=== PATIENT | female | born 1940 | race African-American/Black ===

== ENCOUNTER → 2017-07-12 | Outpatient (CLI) | payer OTHER, MEDICAID ==
[2015-01-10 07:44] VITALS: BP 132/73
--- NOTE | 2017-07-12 14:35 | MG ---
Examination: Unilateral right diagnostic mammogram. Clinical history: Personal history of left breast carcinoma with left mastectomy in 2009. Technique: Multiple digital images of the right breast were obtained. Computer aided detection analys is was performed in the used in the interpretation. Comparison: 07/06/2015, 06/19/2014, 04/30/2013. Findings: The right breast is heterogeneously dense, reducing the sensitivity of mammography. Benign-appearing calcifications and vascular calcifications are noted in the right breast. A 6-7 mm circumscribed, ova l benign-appearing mass is noted in the upper outer aspect of the right breast. This lesion has minim ally enlarged since the prior examinations, but has no additional worrisome features and probably rep resents a small intramammary lymph node. No suspicious mass, area of architectural distortion or suspicious cluster of microcalcifications is noted. Impression: 1. No mammographic evidence of malignancy. BI-RADS category 2-benign findings. Recommend routine annual screening mammogram. Diagnostic CAD was utilized and reviewed. * 0 (ZERO) - ASSESSMENT INCOMPLETE; ADDITIONAL IMAGING IS NEEDED. * 0C - ASSESSMENT INCOMPLETE, NEEDS ADDITIONAL IMAGING EVALUATION AND/OR PRIOR MAMMOGRAMS FOR COMPARI SON. * 1/1 (ONE) - NEGATIVE. * 2/II (TWO) - BENIGN FINDINGS. * 3/III (THREE) - PROBABLY BENIGN FINDING; SHORT INTERVAL FOLLOW-UP SUGGESTED. * 4/IV (FOUR) - SUSPICIOUS ABNORMALITY; BIOPSY SHOULD BE CONSIDERED. * 5/V - HIGHLY SUSPICIOUS OF MALIGNANCY; BIOPSY SHOULD BE PERFORMED. * 6/ - KNOWN BIOPSY PROVEN MALIGNANCY-APPROPRIATE ACTION SHOULD BE TAKEN. A NEGATIVE X-RAY REPORT SHOULD NOT DELAY BIOPSY IF A DOMINANT OR CLINICALLY SUSPICIOUS MASS IS PRESENT; 4 TO 8 PERCENT OF CANCERS ARE NOT IDENTIFIED BY X-RAY. A NEGATIVE REPORT MAY REINFORCE THE CLINICAL IMPRESSION. ADENOSIS AND DENSE BREASTS MAY OBSCURE AN UNDERLYING NEOPLASM. Reported By:
== END ==
LOC: RAD 08:40
PROVIDERS: ATTEND Internal Medicine Hematology & Oncology
DX: C50.112 Malignant neoplasm of central portion of left female breast (principal)
CPT/HCPCS: 77065

== ENCOUNTER → 2017-07-13 | Outpatient (CLI) | payer OTHER, MEDICAID ==
[2015-01-10 07:44] VITALS: BP 132/73
[2017-07-13 14:47] LABS: BASOPHILS % (AUTO) 0.6 % (0.2-1.0); EOSINOPHILS # (AUTO) 0.1 x10^3/uL (0.0-0.2); HEMATOCRIT 37.1 % (36.0-47.0); HEMOGLOBIN 12.6 g/dL (12.0-16.0); LYMPHOCYTES # (AUTO) 2.2 X10^3/uL (1.3-2.9); LYMPHOCYTES % (AUTO) 38.4 % (21.0-51.0); MEAN CORPUSCULAR HEMOGLOBIN 28.5 pg (27.0-34.0); MEAN PLATELET VOLUME 6.5 fL (7.4-11.0); MONOCYTES # (AUTO) 0.5 x10^3/uL (0.3-0.8); MONOCYTES % (AUTO) 8.6 % (0.0-13.0); NEUTROPHILS # (AUTO) 2.9 x10^3/uL (2.2-4.8); NEUTROPHILS % (AUTO) 50.4 % (42.0-75.0); PLATELET COUNT 319 X10^3/uL (150.0-450.0); RED BLOOD COUNT 4.42 X10^6/uL (3.5-5.4); RED CELL DISTRIBUTION WIDTH 14.6 % (11.6-16.5); WHITE BLOOD COUNT 5.7 X10^3/uL (3.6-10.0)
[2017-07-13 14:52] LABS: BLOOD UREA NITROGEN 12 mg/dL (7-18); CALCIUM 9.1 mg/dL (8.5-10.1); CREATININE 1.02 mg/dL (0.55-1.02); eGFR BLACK RACES > 60 (>60); eGFR NON BLACK RACES 56 (>60)
[2017-07-13 14:55] LABS: ALANINE AMINOTRANSFERASE 25 Units/L (12-78); ALBUMIN 3.5 g/dL (3.4-5.0); ALKALINE PHOSPHATASE 105 Units/L (46-116); ASPARTATE AMINO TRANSFERASE 16 Units/L (15-37); TOTAL PROTEIN 7.7 g/dL (6.4-8.2)
[2017-07-13 15:01] LABS: CHLORIDE 106 mmol/L (98-107); COR NA(FOR HYPERGLY) 141 mmol/L (136-145); SODIUM 140 mmol/L (136-145)
== END ==
LOC: LAB 14:24
PROVIDERS: ATTEND Internal Medicine Hematology & Oncology
DX: C50.112 Malignant neoplasm of central portion of left female breast (principal); E55.9 Vitamin D deficiency, unspecified
CPT/HCPCS: 36415; 80053; 82306; 85025

== ENCOUNTER 2019-11-21 12:03 | Observation (INO) ==
[2019-11-21] MEDS ORDERED: TUSSIONEX PENNKINETIC SUSP PO PRN (14:42)
[2019-11-21 15:20] LABS: BASOPHILS % (AUTO) 0.4 % (0.2-1.0); EOSINOPHILS % (AUTO) 0.1 % (0.9-2.9); HEMATOCRIT 39.2 % (36.0-47.0); HEMOGLOBIN 13.4 g/dL (12.0-16.0); LYMPHOCYTES # (AUTO) 0.6 X10^3/uL (1.3-2.9); LYMPHOCYTES % (AUTO) 8.2 % (21.0-51.0); MEAN CORPUSCULAR HEMOGLOBIN 29.1 pg (27.0-34.0); MEAN CORPUSCULAR HGB CONC 34.1 g/dL (33.0-35.0); MEAN CORPUSCULAR VOLUME 85.2 fL (80.0-100.0); MEAN PLATELET VOLUME 6.3 fL (7.4-11.0); MONOCYTES # (AUTO) 0.9 x10^3/uL (0.3-0.8); MONOCYTES % (AUTO) 12.6 % (0.0-13.0); NEUTROPHILS # (AUTO) 5.6 x10^3/uL (2.2-4.8); NEUTROPHILS % (AUTO) 78.7 % (42.0-75.0); PLATELET COUNT 276 X10^3/uL (150.0-450.0); RED CELL DISTRIBUTION WIDTH 14.2 % (11.6-16.5); WHITE BLOOD COUNT 7.1 X10^3/uL (3.6-10.0)
[2019-11-21 15:35] LABS: ALANINE AMINOTRANSFERASE 53 Units/L (12-78); ALBUMIN 3.8 g/dL (3.4-5.0); ALKALINE PHOSPHATASE 120 Units/L (46-116); ASPARTATE AMINO TRANSFERASE 44 Units/L (15-37); BLOOD UREA NITROGEN 14 mg/dL (7-18); CALCIUM 9.4 mg/dL (8.5-10.1); CARBON DIOXIDE 26.3 mmol/L (21-32); CHLORIDE 102 mmol/L (98-107); COR NA(FOR HYPERGLY) 138 mmol/L (136-145); CREATININE 1.06 mg/dL (0.55-1.02); SODIUM 138 mmol/L (136-145); TOTAL PROTEIN 8.2 g/dL (6.4-8.2); eGFR NON BLACK RACES 53 (>60)
[2019-11-21] MEDS ORDERED: NS 1/2 1000 ML IV 1,000 ML IV ONE (15:43)
[2019-11-21] MEDS: LEVAQUIN PREMIX IV 750 MG 750 MG/150 ML BAG IV SCH (15:45)
[2019-11-21] MEDS: NS 1/2 1000 ML IV 1,000 ML IV SCH (15:45)
--- NOTE | 2019-11-21 15:50 | RAD ---
HISTORYPNEUMONIASTUDYCHEST, 1 VIEWCOMPARISONNoneFINDINGSThe heart is normal. The pulmonary vessels are normal. The lungs are mildly hyperinflated and emphysematous. No consolidation or effusion is seen. There are surgical clips along the left axilla.IMPRESSIONMild chronic obstructive lung changes with no acute cardiopulmonary abnormality.Electronically signed by: CAMELIA GIL (Nov 21, 2019 15:47:43)
[2019-11-21] MEDS: ROBITUSSIN DM PO SCH ×2 (17:14→20:44)
[2019-11-21] MEDS: DUONEB 0.5 MG/3 MG (3 mL) NEB SCH ×2 (18:28→20:15)
[2019-11-21] MEDS: TYLENOL 325 MG TAB PO PRN (19:09)
[2019-11-21] MEDS: TAMIFLU PO SCH (20:44)
[2019-11-22] MEDS: TYLENOL 325 MG TAB PO PRN ×2 (04:16→23:37)
[2019-11-22 05:25] LABS: BASOPHILS % (AUTO) 0.3 % (0.2-1.0); HEMATOCRIT 35.7 % (36.0-47.0); HEMOGLOBIN 12.2 g/dL (12.0-16.0); LYMPHOCYTES # (AUTO) 0.5 X10^3/uL (1.3-2.9); LYMPHOCYTES % (AUTO) 8.1 % (21.0-51.0); MEAN CORPUSCULAR HEMOGLOBIN 29.3 pg (27.0-34.0); MEAN CORPUSCULAR HGB CONC 34.2 g/dL (33.0-35.0); MEAN CORPUSCULAR VOLUME 85.7 fL (80.0-100.0); MEAN PLATELET VOLUME 6.5 fL (7.4-11.0); MONOCYTES # (AUTO) 0.6 x10^3/uL (0.3-0.8); MONOCYTES % (AUTO) 9.7 % (0.0-13.0); NEUTROPHILS # (AUTO) 4.9 x10^3/uL (2.2-4.8); NEUTROPHILS % (AUTO) 81.9 % (42.0-75.0); PLATELET COUNT 256 X10^3/uL (150.0-450.0); RED BLOOD COUNT 4.16 X10^6/uL (3.5-5.4); RED CELL DISTRIBUTION WIDTH 14.5 % (11.6-16.5); WHITE BLOOD COUNT 5.9 X10^3/uL (3.6-10.0)
[2019-11-22 05:39] LABS: ALANINE AMINOTRANSFERASE 47 Units/L (12-78); ALBUMIN 3.2 g/dL (3.4-5.0); ALKALINE PHOSPHATASE 102 Units/L (46-116); ASPARTATE AMINO TRANSFERASE 33 Units/L (15-37); BLOOD UREA NITROGEN 11 mg/dL (7-18); CALCIUM 8.4 mg/dL (8.5-10.1); CARBON DIOXIDE 24.8 mmol/L (21-32); CHLORIDE 99 mmol/L (98-107); SODIUM 134 mmol/L (136-145); TOTAL PROTEIN 7.3 g/dL (6.4-8.2); eGFR NON BLACK RACES > 60 (>60)
[2019-11-22] MEDS: LEVAQUIN PREMIX IV 750 MG 750 MG/150 ML BAG IV SCH (09:13)
[2019-11-22] MEDS: ZOCOR TAB 20 MG PO SCH ×2 (09:14→09:19)
[2019-11-22] MEDS: NORVASC TAB 10 MG PO SCH (09:15)
[2019-11-22] MEDS: TOPROL XL PO SCH (09:15)
[2019-11-22] MEDS: TAMIFLU PO SCH ×2 (09:16→20:52)
[2019-11-22] MEDS: ROBITUSSIN DM PO SCH ×4 (09:16→20:52)
[2019-11-22] MEDS ORDERED: NS 1/2 1000 ML IV 1,000 ML IV ONE (09:23)
[2019-11-22] MEDS: DUONEB 0.5 MG/3 MG (3 mL) NEB SCH ×4 (09:26→20:05)
[2019-11-22] MEDS ORDERED: KLOR-CON PO PRN (15:37)
[2019-11-22] MEDS ORDERED: POTASSIUM CHL 40 MEQ/NS 0.45% 500 ML IV PRN (15:37)
[2019-11-22] MEDS ORDERED: POTASSIUM CHL 60 MEQ/NS 0.45% 500 ML IV PRN (15:37)
[2019-11-22] MEDS ORDERED: POTASSIUM CHLORIDE LIQ 20 MEQ UDC PO PRN (15:37)
[2019-11-22] MEDS ORDERED: K-RIDER 10 MEQ/NS 100 ML 10 MEQ/100 ML BAG IV PRN (15:37)
[2019-11-22] MEDS ORDERED: K-DUR TAB 20 MEQ PO PRN (15:37)
[2019-11-22] MEDS ORDERED: MICRO K EXTEN CAP 10 MEQ PO PRN (15:37)
[2019-11-22] MEDS: NS 1/2 1000 ML IV 1,000 ML IV SCH ×2 (16:00→18:49)
[2019-11-22] MEDS ORDERED: K-LYTE EFFERVESCENT ONE (17:17)
[2019-11-22] MEDS ORDERED: MAGNESIUM SULFATE 1 GRAM/100 mL PREMIX 2 G/200 ML BAG IV ONE (17:17)
[2019-11-22] MEDS: MAGNESIUM SULFATE 1 GRAM/100 mL PREMIX 1 GM/100 ML BAG IV PRN ×2 (17:21→18:50)
[2019-11-22] MEDS: ZOCOR TAB 10 MG PO SCH (20:52)
[2019-11-23 05:15] LABS: ALANINE AMINOTRANSFERASE 39 Units/L (12-78); ALBUMIN 2.8 g/dL (3.4-5.0); ALKALINE PHOSPHATASE 88 Units/L (46-116); ASPARTATE AMINO TRANSFERASE 29 Units/L (15-37); BASOPHILS % (AUTO) 0.4 % (0.2-1.0); BLOOD UREA NITROGEN 10 mg/dL (7-18); CALCIUM 8.1 mg/dL (8.5-10.1); CARBON DIOXIDE 25.9 mmol/L (21-32); CHLORIDE 101 mmol/L (98-107); COR CA(FOR HYPOALB) 9.1 mg/dL (8.5-10.1); CREATININE 0.94 mg/dL (0.55-1.02); HEMATOCRIT 35.7 % (36.0-47.0); LYMPHOCYTES # (AUTO) 1.1 X10^3/uL (1.3-2.9); LYMPHOCYTES % (AUTO) 30.5 % (21.0-51.0); MAGNESIUM 2.3 mg/dL (1.7-2.9); MEAN CORPUSCULAR HEMOGLOBIN 28.7 pg (27.0-34.0); MEAN CORPUSCULAR HGB CONC 33.6 g/dL (33.0-35.0); MEAN CORPUSCULAR VOLUME 85.7 fL (80.0-100.0); MEAN PLATELET VOLUME 6.7 fL (7.4-11.0); MONOCYTES # (AUTO) 0.7 x10^3/uL (0.3-0.8); MONOCYTES % (AUTO) 20.5 % (0.0-13.0); NEUTROPHILS # (AUTO) 1.7 x10^3/uL (2.2-4.8); NEUTROPHILS % (AUTO) 48.6 % (42.0-75.0); PLATELET COUNT 219 X10^3/uL (150.0-450.0); RED BLOOD COUNT 4.17 X10^6/uL (3.5-5.4); RED CELL DISTRIBUTION WIDTH 14.4 % (11.6-16.5); SODIUM 135 mmol/L (136-145); TOTAL PROTEIN 6.6 g/dL (6.4-8.2); WHITE BLOOD COUNT 3.5 X10^3/uL (3.6-10.0); eGFR NON BLACK RACES > 60 (>60)
[2019-11-23 05:59] LABS: BAND NEUTROPHILS % 10 % (0-10); BASOPHILS % (MANUAL) 2 % (0-1)
[2019-11-23 06:00] LABS: HYPOCHROMASIA 1+; MICROCYTOSIS 1+; PLATELET MORPHOLOGY COMMENT NORMAL (NORMAL)
--- NOTE | 2019-11-23 06:07 | RAD ---
HISTORYPneumoniaSTUDYCHEST, 1 [id number]/24/2020FINDINGSThe heart is within normal limits in size. The lay are normal. The lungs are free of acute infiltrates. No pleural effusions are identified. There is minimal subsegmental atelectasis in the right lung base. Bony thorax is unremarkable.IMPRESSIONNo infiltratesMinimal subsegmental atelectasis right lung baseElectronically signed by: LORENA HOWE (Nov 23, 2019 06:06:39)
[2019-11-23] MEDS: TOPROL XL PO SCH (08:15)
[2019-11-23] MEDS: LEVAQUIN PREMIX IV 750 MG 750 MG/150 ML BAG IV SCH (08:15)
[2019-11-23] MEDS: TAMIFLU PO SCH ×2 (08:15→21:10)
[2019-11-23] MEDS: NORVASC TAB 10 MG PO SCH (08:15)
[2019-11-23] MEDS: ROBITUSSIN DM PO SCH ×4 (08:16→21:10)
[2019-11-23] MEDS: DUONEB 0.5 MG/3 MG (3 mL) NEB SCH ×4 (09:30→21:23)
[2019-11-23] MEDS ORDERED: NS 1/2 1000 ML IV 1,000 ML IV ONE (09:47)
[2019-11-23 11:59] LABS: BILIRUBIN,URINE NEGATIVE (NEGATIVE); BLOOD/HEMOGLOBIN,URINE 1+ (NEGATIVE); GLUCOSE, URINE NEGATIVE (NEGATIVE); KETONES,URINE NEGATIVE (NEGATIVE); LEUKOCYTE ESTERASE ,URINE 3+ (NEGATIVE); NITRITES,URINE NEGATIVE (NEGATIVE); PROTEIN,URINE 1+ (NEGATIVE); UROBILINOGEN,URINE NORMAL (NORMAL)
[2019-11-23 12:13] LABS: APPEARANCE,URINE CLEAR (CLEAR); BACTERIA,URINE NEGATIVE /HPF (NEGATIVE); COLOR,URINE PALE YELLOW (YELLOW); RBC,URINE 0-2 /HPF (0-3); SQUAMOUS EPITHELIAL CELL,UR FEW /HPF (NEGATIVE)
[2019-11-23] MEDS: NS 1/2 1000 ML IV 1,000 ML IV SCH ×3 (12:53→23:30)
--- NOTE | 2019-11-23 20:42 | DR.UPDATE ---
H&P Update History and Physical Update: History and Physical reviewed and patient examined. Changes noted: Yes with the following: PRESENTED TO THE OFFICE YESTERDAY WITH COMPLAINTS OF COUGH, CONGESTION, SHORTNESS OF BREATH, FEVER, FATIGUE, AND WEAKNESS. SYMPOTMS STARTED APPROXIMATELY 3-4 DAYS PRIOR. SHE WAS ADMITTED FOR FURTHER EVALUATION AND TREATMENT OF INFLUENZA, BRONCHOPNEUMONIA, FEVER, CHILLS, AND SOB. ON ADMISSION, VITALS WERE 100.2-85-18-97%-132/73. LABS WERE OBTAINED. ABNORMAL LAB VALUES INCLUDE THE FOLLOWING: CREATININE 1.06, GLUCOSE 115, POTASSIUM 3.6, MAGNESIUM 1.6, AST 44, ALK PHOS 120. BLOOD AND SPUTUM CULTURES WERE OBTAINED. A CHEST XRAY WAS OBTAINED AND REVEALED: MILD CHRONIC OBSTRUCTIVE LUNG CHANGES WITH NO ACUTE CARDIOPULMONARY ABNORMALITY. SHE WAS STARTED ON 1/2NS AT 75 ML/HR, LEVAQUIN 750MG IV DAILY, TAMIFLU 75MG PO BID, RESPIRATORY TX, TUSSIONEX, ROBITUSSIN, AND SUPPLEMENTAL OXYGEN. WE WILL CONTINUE WITH CURRENT PLAN OF CARE TODAY AND START THE POTASSIUM AND MAGNESIUM PROTOCOLS. OTHERWISE, WE WILL FOLLOW UP WITH AM LABS AND CONTINUE TO [facility]. Prescription drug monitoring program results: PDMP was not reviewed H&P Reviewed: Yes Patient was examined?: Yes
[2019-11-23] MEDS ORDERED: RESTORIL CAP 15 MG PO PRN (20:57)
[2019-11-23] MEDS: ZOCOR TAB 10 MG PO SCH (21:10)
--- NOTE | 2019-11-23 22:03 | PCM.PROG ---
Progress Note - Progress Note for Day of Date of Exam: 11/23/19 - Subjective Subjective: IS BEING TREATED FOR TREATMENT OF INFLUENZA, BRONCHOPNEUMONIA, FEVER, AND WEAKNESS. TODAY, SHE IS ALERT AND ORIENTED, LYING IN BED ON MORNING ROUNDS. SHE CONTINUES WITH COMPLAINTS OF A PRODUCTIVE COUGH, SHORTNESS OF BREATH, AND BODY ACHES. ON EXAMINATION, HEART IS REGULAR IN RATE AND RHYTHM. BILATERAL LUNGS ARE NOTED WITH SCATTERED WHEEZING THROUGHOUT. ABDOMEN IS ROUND, SOFT, AND NON-TENDER WITH NORMAL BOWEL SOUNDS NOTED IN ALL QUADRANTS. HER VITALS THIS MORNING ARE: 98.9-65-24-96%-130/60. LABS WERE OBTAINED. ABNORMAL LAB VALUES INCLUDE THE FOLLOWING: WBC 3.5, HCT 35.7, SODIUM 135, GLUCOSE 101, CALCIUM 8.1, ALBUMIN 2.8. A URINALYSIS WAS OBTAINED AND REVEALED: WBC 5-10, RBC 0-2, LEUKOCYTES 3+, BACTERIA NEGATIVE. BLOOD, SPUTUM, AND URINE CULTURES ARE PENDING. A CHEST XRAY WAS OBTAINED TODAY AND REVEALED: No infiltrates. Minimal subsegmental atelectasis right lung base. SHE IS CURRENTLY RECEIVING 1/2NS AT 75ML/HR, LEVAQUIN 750MG IV DAILY, RESPIRATORY TX, SUPPLEMENTAL OXYGEN, AND THE POTASSIUM AND MAGNESIUM PROTOCOLS. HOME MEDICATIONS WERE RESUMED. WE WILL CONTINUE WITH CURRENT PLAN OF CARE TODAY. OTHERWISE, WE WILL FOLLOW UP WITH AM LABS AND CONTINUE TO MONITOR. - Past Medical Family Social History Past Med/Fam/Surg Hx: No changes since H&P Allergies: Allergies No Known Drug Allergies Allergy (Verified 11/22/19 19:10) - Review of Systems ROS: No change since H&P - Vital Signs and I&O's Vital Signs: Temperature 99.6 F Pulse Rate [Left Brachial] 73 Pulse Rate 64 Respiratory Rate 24 Blood Pressure [Left leg] 147/63 Blood Pressure 145/76 O2 Sat by Pulse Oximetry 96 Intake and Output: Intake & Output 11/21/19 11/22/19 11/23/19 11/24/19 11:59 11:59 11:59 11:59 Intake Total 2054 2930 / 2930 1420 / 1420 Balance 2054 2930 / 2930 1420 / 1420 - Physical Exam Oriented: Normal Eyes: Normal Ear: Normal Nose: Normal Throat: Normal Respiratory: Generalized, Wheezes Cardiovascular: Normal : Normal Auscultation: Bowel Sounds: Normal Palpation: Normal Tenderness: Normal Skin: Normal Musculoskeletal: Normal Psychiatric: Normal Mood Description: Calm Affect: Normal Speech Pattern: Clear, Appropriate - Laboratory and Diagnostics Result Diagrams: 11/23/19 04:49 11/23/19 04:49 Labs: 11/21/19 15:28 Blood Blood Culture - Preliminary 11/21/19 15:00 Blood Blood Culture - Preliminary 11/21/19 16:15 Sputum - Expectorated Sputum Sputum Culture - Final 11/21/19 16:15 Sputum - Expectorated Sputum - Final Laboratory WBC 3.5 X10^3/uL (3.6-10.0) L 11/23/19 04:49 RBC 4.17 X10^6/uL (3.5-5.4) 11/23/19 04:49 Hgb 12.0 g/dL (12.0-16.0) 11/23/19 04:49 Hct 35.7 % (36.0-47.0) L 11/23/19 04:49 MCV 85.7 fL (80.0-100.0) 11/23/19 04:49 MCH 28.7 pg (27.0-34.0) 11/23/19 04:49 MCHC 33.6 g/dL (33.0-35.0) 11/23/19 04:49 RDW 14.4 % (11.6-16.5) 11/23/19 04:49 Plt Count 219 X10^3/uL (150.0-450.0) 11/23/19 04:49 Plt Count Comment Adequate (ADEQUATE) 11/23/19 04:49 MPV 6.7 fL (7.4-11.0) L 11/23/19 04:49 Neut % (Auto) 48.6 % (42.0-75.0) 11/23/19 04:49 Lymph % (Auto) 30.5 % (21.0-51.0) 11/23/19 04:49 [place] % (Auto) 20.5 % (0.0-13.0) H 11/23/19 04:49 Eos % (Auto) 0.0 % (0.9-2.9) L 11/23/19 04:49 Baso % (Auto) 0.4 % (0.2-1.0) 11/23/19 04:49 Neut # (Auto) 1.7 x10^3/uL (2.2-4.8) L 11/23/19 04:49 Lymph # (Auto) 1.1 X10^3/uL (1.3-2.9) L 11/23/19 04:49 [place] # (Auto) 0.7 x10^3/uL (0.3-0.8) 11/23/19 04:49 Eos # (Auto) 0.0 x10^3/uL (0.0-0.2) 11/23/19 04:49 Baso # (Auto) 0.0 X10^3/uL (0.0-0.1) 11/23/19 04:49 Absolute Nucleated RBC 0.0 /100WBC 11/23/19 04:49 Total Counted 100 11/23/19 04:49 Neutrophils % (Manual) 32 % (39-76) L 11/23/19 04:49 Band Neutrophils % 10 % (0-10) 11/23/19 04:49 Lymphocytes % (Manual) 28 % (13-43) 11/23/19 04:49 Monocytes % (Manual) 28 % (4-9) H 11/23/19 04:49 Eosinophils % (Manual) 0 % (0-6) 11/23/19 04:49 Basophils % (Manual) 2 % (0-1) H 11/23/19 04:49 Plt Morphology Comment Normal (NORMAL) 11/23/19 04:49 RBC Morphology Abnormal (NORMAL) A 11/23/19 04:49 Hypochromasia 1+ A 11/23/19 04:49 Microcytosis 1+ A 11/23/19 04:49 Sodium 135 mmol/L (136-145) L 11/23/19 04:49 Corrected Sodium TNP 11/23/19 04:49 Potassium 3.6 mmol/L (3.5-5.1) 11/23/19 04:49 Chloride 101 mmol/L (98-107) 11/23/19 04:49 Carbon Dioxide 25.9 mmol/L (21-32) 11/23/19 04:49 BUN 10 mg/dL (7-18) 11/23/19 04:49 Creatinine 0.94 mg/dL (0.55-1.02) 11/23/19 04:49 Est GFR (MDRD) Af Amer > 60 (>60) 11/23/19 04:49 Est GFR (MDRD) Non-Af > 60 (>60) 11/23/19 04:49 Glucose 101 mg/dL (65-99) H 11/23/19 04:49 Calcium 8.1 mg/dL (8.5-10.1) L 11/23/19 04:49 Corrected Calcium 9.1 mg/dL (8.5-10.1) 11/23/19 04:49 Magnesium 2.3 mg/dL (1.7-2.9) 11/23/19 04:49 Total Bilirubin 0.20 mg/dL (0.2-1.0) 11/23/19 04:49 AST 29 Units/L (15-37) 11/23/19 04:49 ALT 39 Units/L (12-78) 11/23/19 04:49 Alkaline Phosphatase 88 Units/L (46-116) 11/23/19 04:49 Total Protein 6.6 g/dL (6.4-8.2) 11/23/19 04:49 Albumin 2.8 g/dL (3.4-5.0) L 11/23/19 04:49 Globulin 3.8 g/dL (2.5-4.5) 11/23/19 04:49 Albumin/Globulin Ratio 0.7 Ratio (1.1-2.1) L 11/23/19 04:49 Specimen Type Clean catch urine 11/23/19 11:39 Urine Color Pale yellow (YELLOW) 11/23/19 11:39 Urine Appearance Clear (CLEAR) 11/23/19 11:39 Urine pH 6.0 (5.0 - 8.0) 11/23/19 11:39 Ur Specific [place] 1.015 (1.000-1.030) 11/23/19 11:39 Urine Protein 1+ (NEGATIVE) 11/23/19 11:39 Urine Glucose (UA) Negative (NEGATIVE) 11/23/19 11:39 Urine Ketones Negative (NEGATIVE) 11/23/19 11:39 Urine Occult Blood 1+ (NEGATIVE) 11/23/19 11:39 Urine Nitrite Negative (NEGATIVE) 11/23/19 11:39 Urine Bilirubin Negative (NEGATIVE) 11/23/19 11:39 Urine Urobilinogen Normal (NORMAL) 11/23/19 11:39 Ur Leukocyte Esterase 3+ (NEGATIVE) 11/23/19 11:39 Urine RBC 0-2 /HPF (0-3) 11/23/19 11:39 Urine WBC 5-10 /HPF (0-5) A 11/23/19 11:39 Ur Squamous Epith Cells Few /HPF (NEGATIVE) 11/23/19 11:39 Urine Bacteria Negative /HPF (NEGATIVE) 11/23/19 11:39 Ur Culture Indicated? Yes/culture set up 11/23/19 11:39 - Plan (1) Bronchopneumonia Status: Acute Plan: IV FLUIDS, IV LEVAQUIN, RESPIRATORY TX, SUPPLEMENTAL OXYGEN, CONTINUE TO MONITOR (2) Influenza Status: Acute Plan: TAMIFLU, CONTINUE TO MONITOR (3) Fever Status: Acute (4) Generalized weakness Status: Acute
[2019-11-24] MEDS ORDERED: NS 1/2 1000 ML IV 1,000 ML IV ONE (00:16)
[2019-11-24 05:26] LABS: BASOPHILS % (AUTO) 0.7 % (0.2-1.0); EOSINOPHILS % (AUTO) 0.1 % (0.9-2.9); HEMATOCRIT 35.6 % (36.0-47.0); LYMPHOCYTES # (AUTO) 1.4 X10^3/uL (1.3-2.9); LYMPHOCYTES % (AUTO) 49.8 % (21.0-51.0); MEAN CORPUSCULAR HEMOGLOBIN 28.9 pg (27.0-34.0); MEAN CORPUSCULAR HGB CONC 33.8 g/dL (33.0-35.0); MEAN CORPUSCULAR VOLUME 85.6 fL (80.0-100.0); MEAN PLATELET VOLUME 6.6 fL (7.4-11.0); MONOCYTES # (AUTO) 0.4 x10^3/uL (0.3-0.8); MONOCYTES % (AUTO) 15.3 % (0.0-13.0); NEUTROPHILS # (AUTO) 0.9 x10^3/uL (2.2-4.8); NEUTROPHILS % (AUTO) 34.1 % (42.0-75.0); PLATELET COUNT 229 X10^3/uL (150.0-450.0); RED BLOOD COUNT 4.15 X10^6/uL (3.5-5.4); RED CELL DISTRIBUTION WIDTH 14.5 % (11.6-16.5); WHITE BLOOD COUNT 2.7 X10^3/uL (3.6-10.0)
[2019-11-24 05:45] LABS: ALANINE AMINOTRANSFERASE 33 Units/L (12-78); ALBUMIN 2.8 g/dL (3.4-5.0); ALKALINE PHOSPHATASE 81 Units/L (46-116); ASPARTATE AMINO TRANSFERASE 26 Units/L (15-37); BLOOD UREA NITROGEN 8 mg/dL (7-18); CALCIUM 8.1 mg/dL (8.5-10.1); CARBON DIOXIDE 25.5 mmol/L (21-32); CHLORIDE 104 mmol/L (98-107); COR CA(FOR HYPOALB) 9.1 mg/dL (8.5-10.1); CREATININE 0.84 mg/dL (0.55-1.02); SODIUM 136 mmol/L (136-145); TOTAL PROTEIN 6.6 g/dL (6.4-8.2); eGFR NON BLACK RACES > 60 (>60)
--- NOTE | 2019-11-24 07:06 | RAD ---
HISTORYFollow-up pneumoniaSTUDYCHEST, 1 [id number]/26/2020FINDINGSThe heart is upper limits normal in size. No congestive heart failure is noted. No acute alveolar infiltrates or pleural effusions are identified. There is subsegmental atelectasis in the right lung base.IMPRESSIONNo significant change from the prior examinationElectronically signed by: LORENA HOWE (Nov 24, 2019 07:04:59)
[2019-11-24] MEDS: LEVAQUIN PREMIX IV 750 MG 750 MG/150 ML BAG IV SCH (08:16)
[2019-11-24] MEDS: NORVASC TAB 10 MG PO SCH (08:17)
[2019-11-24] MEDS: TOPROL XL PO SCH (08:17)
[2019-11-24] MEDS: TAMIFLU PO SCH (08:17)
[2019-11-24] MEDS: ROBITUSSIN DM PO SCH (08:17)
[2019-11-24] MEDS: DUONEB 0.5 MG/3 MG (3 mL) NEB SCH ×2 (09:45→12:06)
[2019-11-24] MEDS ORDERED: LOVENOX INJ 40 MG SYR SC SCH (10:00)
[2019-11-24 10:17] VITALS: BP 137/64
[2019-11-24] MEDS ORDERED: DULCOLAX SUPPOSITORY 10 MG RECTAL ONE (11:14)
[2019-11-24] MEDS ORDERED: COLACE CAP 100 MG PO STA (11:15)
[2019-11-24] MEDS ORDERED: MILK OF MAGNESIA PO SCH (12:00)
== END 2019-11-24 13:15 | disposition home or self-care (01) ==
LOC: ICU
PROVIDERS: ADMIT Internal Medicine; ATTEND Internal Medicine
DX: J18.0 Bronchopneumonia, unspecified organism; Z79.899 Other long term (current) drug therapy; J10.1 Influenza due to other identified influenza virus with other respiratory manifestations; R06.02 Shortness of breath; M79.10 Myalgia, unspecified site
CPT/HCPCS: 36415; 71010; 71045; 80053; 81001; 83735; 85025; 87040; 87070; 87086; 87205; 94640; 96360; 96361; A4222; G0378; G9035; J1956; J3475; J3490; J7620; J8499